=== PATIENT | male | born 1955 | race Caucasian/White ===

== ENCOUNTER → 2017-05-16 | Outpatient (CLI) | payer BC ==
[~2017-05-16] MED LIST: ASPI81TA21 PO; FISHOIL PO; LISI20TA3 PO; MELO15TA10 PO; NIAC500T11 PO; PREVALITE
== END | disposition home or self-care (01) ==
LOC: C.LABBC 07:25
PROVIDERS: ATTEND Urology
DX: C61 Malignant neoplasm of prostate (principal)